=== PATIENT | male | born 1970 | race African-American/Black ===

== ENCOUNTER 2019-05-24 06:54 | Emergency (ER) | payer BC ==
[~2019-05-24] VITALS: Ht 172.7 cm; Wt 90.7 kg
[2019-05-24 06:57] VITALS: BP 144/91
[2019-05-24] MEDS ORDERED: GLIPIZIDE5 G1 MC (07:01)
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
--- NOTE | 2019-05-24 07:22 | NUR ---
ED Nurse Note: patient taken to x ray
[2019-05-24] MEDS ORDERED: IBUPROFEN600 MG ORAL (07:49)
[2019-05-24] MEDS ORDERED: ACETAMINOPHEN500 M3 ORAL (07:49)
--- NOTE | 2019-05-24 08:30 | NUR ---
ED Nurse Note: ulnar gutter splint applied by Dr. Shahid without complication.
[2019-05-24 08:33] VITALS: BP 144/91
--- NOTE | 2019-05-24 08:33 | NUR ---
ER DISCHARGE NOTE: Patient is cleared to be discharged per ERMD DR CARMONA, pt is aox4, on room air, with stable vital signs. pt was given dc and prescription instructions, pt was able to verbalize understanding, pt id band removed without complications. pt is able to ambulate with steady gait. pt took all belongings.
--- NOTE | 2019-05-24 11:31 | Diagnostic Imaging Report ---
Indication: Right hand pain Findings: 3 views of the right hand were obtained. There is an acute fracture of the distal fourth metacarpal with slight impaction. Soft tissue swelling noted. IMPRESSION: Acute fracture
== END 2019-05-24 08:33 | disposition home or self-care (01) ==
LOC: EMR 07:20
DX: S62.394A Other fracture of fourth metacarpal bone, right hand, initial encounter for closed fracture (principal); E11.9 Type 2 diabetes mellitus without complications; Y04.0XXA Assault by unarmed brawl or fight, initial encounter; Y93.9 Activity, unspecified; Y92.9 Unspecified place or not applicable
CPT/HCPCS: 29125; 99283